=== PATIENT | female | born 2000 | race Caucasian/White ===

== ENCOUNTER → 2021-11-22 | Outpatient (CLI) | payer SELFPAY ==
--- NOTE | 2021-11-22 08:02 | US_ITS ---
STUDY: ULTRASOUND TRANSVAGINAL CLINICAL: Female, 21 years old. pelvic pain-MORE ON LEFT -- METRORRHAGIA, IRREGULAR MENSTRATION TECHNIQUE: Transvaginal COMPARISON: None. FINDINGS: Normal uterine size measuring 7.6 x 5.6 x 3.9 cm in dimension. There are no myometrial masses. Normal endometrial thickness measuring mm. There are no endometrial masses, and there is no fluid in the endometrial cavity. Normal uterine cervix. Normal right ovary, measuring 4.0 x 2.8 x 2.3 cm. Simple cyst 1.5 x 1.2 x 0.7 cm. Normal left ovary, measuring 4.7 x 4.1 x 4.0 cm. cm. 3.4 x 3.2 x 3.0 cm complex cyst with multiple septations and low level internal echoes likely representing hemorrhagic cyst less likely endometrioma. Small amount of free fluid in cul-de-sac likely physiologic. Polycystic ovary disease: No. US/Transvaginal Non- IMPRESSION: Right ovary simple cyst 1.5 x 1.2 x 0.7 cm. Left ovary complex cyst 3.4 x 3.2 x 3.0 cm likely hemorrhagic cyst less likely endometrioma. Small amount of free fluid in cul-de-sac likely physiologic. Electronically Signed: James Moralez MD, RAY at 17:16 EDT ,
== END | disposition home or self-care (01) ==
LOC: OPUS 08:01
PROVIDERS: PCP Family Medicine; Referring Provider Registered Nurse; Visit Provider Registered Nurse
DX: R92.8 Other abnormal and inconclusive findings on diagnostic imaging of breast (principal); N83.202 Unspecified ovarian cyst, left side; N92.1 Excessive and frequent menstruation with irregular cycle; N83.291 Other ovarian cyst, right side; N92.6 Irregular menstruation, unspecified
CPT/HCPCS: 76830; 93976

== ENCOUNTER 2022-01-03 10:51 | Outpatient (CLI) | payer SELFPAY ==
--- NOTE | 2022-01-03 10:55 | US_ITS ---
EXAM: US PELVIS TRANSABDOMINAL, COMPLETE CLINICAL INDICATION: follow up for complex left ovarian cyst TECHNIQUE: Transabdominal pelvic ultrasound was performed with grayscale and color Doppler imaging. This report was created using [email or web address] report [employer] technology. COMPARISON: None. FINDINGS: UTERUS/CERVIX: Normal. Anteverted. There is no uterine mass. The uterus measures 8.8 x 5.1 x 3.7 cm. The endometrial stripe measures 0.7 cm in thickness. RIGHT OVARY: Normal. Blood flow is present in the right ovary. The right ovary measures 4.1 x 2.7 x 3.1 cm. LEFT OVARY: The previously noted hemorrhagic left ovarian cyst is no longer present. Blood flow is present in the left ovary. The left ovary measures 3.5 x 2.3 x 1.7 cm. FREE FLUID: No adnexal mass or free pelvic fluid. BLADDER: Unremarkable as visualized. Wall is normal thickness for degree of distention. US/Transvaginal Non- IMPRESSION: Resolution of the left ovarian hemorrhagic cyst. No pelvic abnormality. Electronically Signed: Flyod Hillman MD at 13:22 EST ,
== END 2022-01-03 23:59 | disposition home or self-care (01) ==
LOC: OPUS 10:54
PROVIDERS: PCP Family Medicine; Referring Provider Registered Nurse; Visit Provider Registered Nurse
DX: N83.299 Other ovarian cyst, unspecified side (principal)
CPT/HCPCS: 76830

== ENCOUNTER → 2023-02-19 | Outpatient (CLI) | payer SELFPAY ==
--- OUTSIDE RECORDS SUMMARY | 2023-02-19 17:53 | XMS RPT_ITS | CCD ---
Author Name Unknown Address [address] [place] [address] Organization [facility] Care Team Providers Care Boiler Operator Name Role Phone Unavailable Primary Care Provider ELIZABETH Jones Referring Unavailable Medications Current Medications Medication Drug Class(es) Dates Sig (Normalized) Sig (Original) sulfamethoxazole 800 mg / trimethoprim 160 mg oral tablet (1 source) Dihydrofolate Reductase Inhibitor Antibacterial, Sulfonamide Antimicrobial Start: 02-24-2022 End: 03-01-2022 take 1 tablet by mouth twice daily sulfamethoxazol e-trimethoprim (BACTRIM DS) 800-160 mg per tablet Indications: Skin infection Take 1 tablet by mouth twice daily for 5 days. 10 tablet 0 02/24/2022 03/01/2022 Active Problems Problem Classification Problem Date Documented Da te Episodic/Chronic Other bone disease and musculoskeletal deformities (1 source) History of amputation of finger of right hand; Translations: [Acquired absence of right finger(s)] Episodic Other connective tissue disease (2 sources) Pain in finger of right hand; Translations: [Pain in right finger(s)] Episodic Other connective tissue disease (1 source) Pain in right finger(s); Translations: [Pain of finger of right hand] Onset: 02-24-2022 Episodic Other skin disorders (1 source) Disorder of right upper extremity; Translations: [Localized swelling, mass and lump, right upper limb] Episodic Skin and subcutaneous tissue infections (1 source) Infection of skin; Translations: [Local infection of the skin and subcutaneous tissue, unspecified] Episodic Results Test Name Value Interpretation Reference Range Facil ity Vital Signs Date Time Vital Sign Value Performing Clinician Faci lity 02-24-2022 11:47-0500 Body temperature 97.2 [degF] Elizabeth Mathis APRN.SHERIFFS DETECTIVE Work Phone: 02-24-2022 11:47-0500 Body weight 56.43 kg Elizabeth Mathis APRN.[employer] DETECTIVE Work Phone: 02-24-2022 11:47-0500 Diastolic blood pressure 68 mm[Hg] Elizabeth Mathis APRN.[employer] DETECTIVE Work Phone: 02-24-2022 11:47-0500 Heart rate 82 /min Elizabeth Mathis APRN.[employer] DETECTIVE Work Phone: 02-24-2022 11:47-0500 Respiratory rate 21 /min Elizabeth Mathis APRN.[employer]ER[employer] DETECTIVE Work Phone: 02-24-2022 11:47-0500 SaO2% (BldA) [Mass fraction] 98 % Elizabeth Mathis APRN.SHER[employer] DETECTIVE Work Phone: 02-24-2022 11:47-0500 Systolic blood pressure 98 mm[Hg] Elizabeth Mathis APRN.[employer] DETECTIVE Work Phone: Encounters Encounter Date Encounter Type Care Provider Facility Start: 03-06-2022 Telephone encounter Janna schneider PA-C Work Phone: Orthopaedics Plan of Treatment Date Care Activity Detail Author Start: 02-12-2022 DEPRESSION ASSESSMENT DEPRESSION ASSESSMENT Start: 10-13-2021 Influenza vaccination INFLUENZA (#1) Start: 2020 Urine microalbumin profile DTAP,TDAP,TD (1 - Tdap) Start: 07-04-2019 CHLAMYDIA SCREENING (18-24) CHLAMYDIA SCREENING (18-24) Start: 07-04-2019 GC (GONORRHEA) SCREENING (18-24) GC (GONORRHEA) SCREENING (18-24) Start: 07-04-2019 HEPATITIS C SCREENING HEPATITIS C SCREENING Start: 07-04-2019 HIV SCREENING HIV SCREENING Start: 07-04-2015 PEDS TO ADULT TRANSITION ANNUAL ASSESSMENT PEDS TO ADULT TRANSITION ANNUAL ASSESSMENT Start: 2013 PEDS TO ADULT TRANSITION INITIAL DISCUSSION PEDS TO ADULT TRANSITION INITIAL DISCUSSION Start: 05-22-2013 HPV VACCINE (1 - 2-dose series) HPV VACCINE (1 - 2-dose series) Start: 07-04-2011 MENINGOCOCCAL B: Consider based on risk (1 of 2 - Risk Bexsero 2-dose series) MENINGOCOCCAL B: Consider based on risk (1 of 2 - Risk Bexsero 2-dose series) Start: 07-04-2007 PNEUMOCOCCAL (1 - PCV) PNEUMOCOCCAL (1 - PCV) [facility] ic Start: 01-03-2002 COVID-19 VACCINE (#1) COVID-19 VACCINE (#1) Start: 2001 HEPATITIS B (1 of 3 - 3-dose series) HEPATITIS B (1 of 3 - 3-dose series) End: 04-05-2023 Mri upper extremity oth than jt w/o contr matrl MRI HAND WO IVCON RT Radiology STAT Localized swelling, mass, or lump of right upper extremity 1 Occurrences starting 03/06/2022 until 04/05/2023 [facility] Work Phone: Social History Date Type Detail Facility Start: 02-24-2022 Tobacco smoking stat [facility] Ex-smoker History of tobacco use Current smoker [facility] History of tobacco use Pipe Smoker [facility] History of tobacco use Passive smoker [facility] Start: 02-24-2022 Tobacco use and exposure Smoke less tobacco non-user Start: 2001 Sex Assigned At Not on file [facility] Start: 03-02-2022 Tobacco smoking stat [facility] Smokes tobacco daily Start: 03-02-2022 Tobacco use and exposure User of smo keless tobacco Start: 03-02-2022 Tobacco [facility] 03-06-2022 Telephone Encounter - Janna Tran PA-C - 03/06/2022 8:21 AM EST Note Date & Type Note Facility 03-06-2022 Miscellaneous Notes Formattin g of this note might be different from the original. Pt states she has had an increase in swelling over the past few days. She states her finger will change color and will turn yellow and then galo. She does not have any drainage or redness. She stopped antibiotics last week. It has not gotten worse in the last few days but it still is bothering her. We will obtain a MRI to r/o underlying infection. I will contact her after the MRI. She will contact the office sooner with any worsening symptoms. Janna Tran PA-C documented in this encounter Instructions 03-02-2022 Patient Instructions Note Date & Type Note Facility 03-02-2022 Instructions Janna Tran PA-C - 03/02/2022 2:29 PM EST Images from the original note were not included. HAND AND UPPER EXTREMITY SURGERY Janna Tran PA-C, MPAS Iain Croft MD, PhD ROSEMARY Renee RN Office: [phone] If you experience worsening symptoms including increased swelling, numbness, or redness, please go to the ED. Set up Mychart documented in this encounter History of Present illness Narrative 03-02-2022 Janna Tran PA-C - 03/02/2022 2:21 PM EST Note Date & Type Note Facility 03-02-2022 History of Presen t illness Narrative March 02, 2022 CHIEF COMPLAINT: Right index finger pain HPI: Ceci Gaspar is a 21 year old RHD female who presents to clinic with right index finger pain. She amputated the distal end of her finger when she was 3 years old on a crab meat processor. About six weeks ago she started having pain and more swelling at the distal end of her index finger. She was seen in the express care on 02/24/22 and was started on Batrim. This improved her symptoms. The swelling hsa improved. She has occasional sensitivity but she denies redness or drainage. She finished the antibiotics yesterday. Referred by: Self Occupation: Clean houses ASSESSMENT: 21 year old female with history of amputation of her distal right index finger 18 years ago with recent possible soft tissue infection Z89.021 History of amputation of finger of right hand (primary encounter diagnosis) M79.644 Pain of finger of right hand PLAN: Her symptoms have improved since taking Bactrim and there is no sign of infection today. She will use a light compression digi sleeve to help with the mild residual edema and continue to ice and elevate If she notices any worsening symptoms including redness, increased pain, warmth or drainage she will contact the office. She was agreeable with this plan. OBJECTIVE: There were no vitals filed for this visit. There is no height or weight on file to calculate BMI. General: NAD Eyes: Pupils not pinpointed, not overly dilated, anicteric Neck: Full range of motion Cardiovascular: Palpable pulse and brisk capillary refill (<2 sec) to all fingers Lymphatic: Inspection of the arm/hand reveals no lymphedema Respiratory: Respirations even and unlabored, no audible wheezing Integumentary: Inspection of skin reveals no breaks or obvious lesions except for those noted below. Neuro: Intact sensation to light touch over the median, ulnar, and radial nerve distributions. Psychiatric: No obvious anxiety, well kempt, normal affect. Appropriate response to pain. Musculoskeletal: RUE: Able to flex and extend all fingers at the DIP and PIP. Able to retropulse the thumb, abduct all fingers against resistance. Partial amputation of the distal phalanx of the index finger with absent nail, mild edema of distal end of the finger, no erythema, no fluctuance or drainage, no warmth, full range of motion of fingers IMAGING: Radiographs of the right index finger were obtained on 02/24/22 which were personally reviewed by me and demonstrate partial amputation deformity of the distal phalanx of the index finger, no acute osseous abnormality Supporting Subjective Information Below: Past Medical History: No past medical history on file. Past Surgical History: No past surgical history on file. Family History: No family history on file. Medications: No current outpatient medications on file. No current facility-administered medications for this visit. Allergies: ALLERGIES No Known Allergies ROS: General (negative for fatigue) HEENT (negative for headache, earache, recent vision changes, sinus pain, sore throat) Respiratory (no recent shortness of breath, hemoptysis) CV (negative for chest tightness, palpitations) GI (negative for change in bowel habits) Hematologic (no spontaneous bleeding, bruising) Endocrine (no heat or cold intolerance) Referring Physician: Elizabeth Chamorro-[phone] Janna Tran PA-C documented in this encounter Progress note 02-24-2022 Note Date & Type Note Facility 02-24-2022 Note HNO ID: [id number] Author: RT Flaco(R) Service: Radiology Author Type: Technologist Type: Progress Notes Filed: 02/24/2022 12:22 PM Note Text: Radiology Service Progress Note PATIENT NAME: Ceci Gaspar DATE OF SERVICE: February 24, 2022 TIME: 12:11 PM PATIENT IDENTITY VERIFICATION COMPLETED USING TWO (2) IDENTIFIERS: Name and Date of confirmed by patient verbally. FALL SCREENING: Has the patient had 2 falls in the last year or 1 fall with injury or currently using an Ambulatory Assistive Device (Walker, Cane, Wheelchair, Crutches, etc.)? No PATIENT GENDER DATA: Female. status: : No status: NO. PATIENT RELEVANT IMPLANT DATA REVIEWED: Yes RADIOLOGY DEPARTMENT: General X-ray: Exam(s) Completed: Upper Extremity X-Ray(s): Fingers/Thumb, right index PERIPHERAL IV DATA: Not applicable SIGNED BY: RT Flaco(R) February 24, 2022 12:11 PM [facility] Progress note 02-24-2022 Note Date & Type Note Facility 02-24-2022 Note HNO ID: [id number] Author: Elizabeth Mathis APRN.SHERIFFS DETECTIVE Service: ? Author Type: Nurse Practitioner Type: Progress Notes Filed: 02/24/2022 1:47 PM Note Text: Subjective Patient came in with complaints of right index finger pressure and discomfort. Patient says is not necessarily a pain it just feels different to her. Patient says she has noticed some slight swelling and some discoloration. Patient says this been going on for a month and a half. Patient denies any other symptoms at this time. Patient does have history of traumatic injury which left her missing the tip of her finger. This happened about 18 years ago. The history is provided by the patient. No language path was used. Review of Systems Constitutional: Negative. Skin: Negative. Objective Physical Exam Constitutional: Appearance: Normal appearance. Pulmonary: Effort: Pulmonary effort is normal. Musculoskeletal: Hands: Comments: Black area is the area that was lost in the trauma. Red area has some slight erythema in that area. The blue area is where bruised area is located. Neurological: Mental Status: She is alert. No past medical history on file. No past surgical history on file. ALLERGIES Patient has no allergy information on record. MEDICATIONS No prescriptions on file. No family history on file. Social History Tobacco Use Smoking status: Former Types: Pipe Passive exposure: Current Smokeless tobacco: Never ASSESSMENT/PLAN: 1. Pain of finger of right hand - ICD9: 729.5, ICD10: M79.644 - XR DIGIT GENERAL 3V FRONTAL/LAT/OBL RIGHT * * * * Physician Interpretation * * * * EXAMINATION: XR DIGIT 3V FRONTAL/LAT/OBL RT CLINICAL HISTORY: Right index finger pain Technique: XR DIGIT 3V FRONTAL/LAT/OBL RT -- RIGHT with 3 views on 3 images Comparison: None RESULT: There has been remote amputation of the distal phalanx of the right second digit. No acute fracture or dislocation. No destructive osseous lesion. Joint spaces are maintained. IMPRESSION IMPRESSION: No acute osseous abnormality. Puncher And Fastener: DORA Transcribe Date/Time: Feb 24 2022 12:22P Dictated by : SAPNA BILLINGSLEY MD Orthopedic consult was placed patient will make her own orthopedic appointment. Patient was placed on Bactrim twice a day for 5 days. Patient was instructed to go to the hospital symptoms seem like they are getting worse not better. Patient was okay with this care plan. Elizabeth Mathis APRN.[facility] History of Present illness Narrative 02-24-2022 Elizabeth Mathis APRN.[facility] - 02/24/2022 11:56 AM EST Note Date & Type Note Facility 02-24-2022 History of Presen t illness Narrative Images from the original note were not included. Subjective Patient came in with complaints of right index finger pressure and discomfort. Patient says is not necessarily a pain it just feels different to her. Patient says she has noticed some slight swelling and some discoloration. Patient says this been going on for a month and a half. Patient denies any other symptoms at this time. Patient does have history of traumatic injury which left her missing the tip of her finger. This happened about 18 years ago. The history is provided by the patient. No language path was used. Review of Systems Constitutional: Negative. Skin: Negative. Objective Physical Exam Constitutional: Appearance: Normal appearance. Pulmonary: Effort: Pulmonary effort is normal. Musculoskeletal: Hands: Comments: Black area is the area that was lost in the trauma. Red area has some slight erythema in that area. The blue area is where bruised area is located. Neurological: Mental Status: She is alert. No past medical history on file. No past surgical history on file. ALLERGIES Patient has no allergy information on record. MEDICATIONS No prescriptions on file. No family history on file. Social History Tobacco Use Smoking status: Former Types: Pipe Passive exposure: Current Smokeless tobacco: Never ASSESSMENT/PLAN: 1. Pain of finger of right hand - ICD9: 729.5, ICD10: M79.644 - XR DIGIT GENERAL 3V FRONTAL/LAT/OBL RIGHT * * * * Physician Interpretation * * * * EXAMINATION: XR DIGIT 3V FRONTAL/LAT/OBL RT CLINICAL HISTORY: Right index finger pain Technique: XR DIGIT 3V FRONTAL/LAT/OBL RT -- RIGHT with 3 views on 3 images Comparison: None RESULT: There has been remote amputation of the distal phalanx of the right second digit. No acute fracture or dislocation. No destructive osseous lesion. Joint spaces are maintained. IMPRESSION IMPRESSION: No acute osseous abnormality. Puncher And Fastener: DORA Transcribe Date/Time: Feb 24 2022 12:22P Dictated by : SAPNA BILLINGSLEY MD Orthopedic consult was placed patient will make her own orthopedic appointment. Patient was placed on Bactrim twice a day for 5 days. Patient was instructed to go to the hospital symptoms seem like they are getting worse not better. Patient was okay with this care plan. Elizabeth Mathis APRN.CNP documented in this encounter Evaluation note Note Date & Type Note Facility documented in this encounter Evaluation note Note Date & Type Note Facility documented in this encounter Evaluation note Note Date & Type Note Facility documented in this encounter Reason for Referral Specialty Diagnoses / Procedures Referred By Antonio arevalo Referred To Contact Orthopedics Diagnoses Pain of finger of right hand Procedures CONSULT TO ORTHOPAEDICS OFFICE/OUTPATIENT [facility] 60-74 MINUTES Elizabeth Mathis, DELROY.[employer]ERIFFS DETECTIVE [address] [place] [address] Referral ID Status Reason Start Date Expiration Date Visits Requested Visits Authorized [id number] Pending Review PCP Requested Referral 02/24/2022 02/24/2023 1 1 Specialty Diagnoses / Procedures Referred By Contac t Referred To Contact XR IMAGING Diagnoses Pain of finger of right hand Procedures XR DIGIT GENERAL 3V FRONTAL/LAT/OBL RIGHT RADEX FINGR MINIMUM 2 VIEWS Elizabeth Mathis APRN.SHERIFF[employer] DETECTIVE [address] [place] [address] Xr Imaging Referral ID Status Reason Start Date Expiration Date V isits Requested Visits Authorized [id number] Closed Auto-Generate d Referral 02/24/2022 03/26/2023 1 1 Specialty Diagnoses / Procedures Referred By Contac t Referred To Contact MR IMAGING Diagnoses Localized swelling, mass, or lump of right upper extremity Procedures MRI HAND WO IVCON RT MRI UPPER EXTREMITY OTH THAN JT W/O CONTR Janna Mcgowan, TR [address] [place] [address] Mr Imaging Referral ID Status Reason Start Date Expiration Date Visits Requested Visits Authorized [id number] Pending Review Auto-Generat ed Referral 03/06/2022 04/05/2023 1 1 Summary Purpose Family History No Family History Records FoundNo Family History Records Found Advance Directives No Advanced Directives Records FoundNo Advanced Directives Records Found Additional Source Comments Source Comments (unrecognize d section and content) In the event this informatio n is protected by the Federal Confidentiality of Alcohol and Drug Abuse Patient Records regulations: The Federal rules restrict any use of the information to criminally investigate or prosecute any alcohol or drug abuse patient.[facility] ClinicIn the event this information is protected by the Federal Confidentiality of Alcohol and Drug Abuse Patient Records regulations: The Federal rules restrict any use of the information to criminally investigate or prosecute any alcohol or drug abuse patient.In the event this information is protected by the Federal Confidentiality of Alcohol and Drug Abuse Patient Records regulations: The Federal rules restrict any use of the information to criminally investigate or prosecute any alcohol or drug abuse patient. Reason for Visit (unrecogniz ed section and content) Reason Comments New Pain Swelling Specialty Diagnoses / Procedures Referred By Antonio arevalo Referred To Contact Orthopedics Diagnoses Pain of finger of right hand Procedures CONSULT TO ORTHOPAEDICS OFFICE/OUTPATIENT NEW HIGH MDM 60-74 MINUTES Elizabeth Mathis APRN.SHERIFFS DETECTIVE [address] [place] [address] Referral ID Status Reason Start Date Expiration Date Visits Requested Visits Authorized [id number] Pending Review PCP Requested Referral 02/24/2022 02/24/2023 1 1 Reason Comments Patient Update INFORMATION SOURCE (unrecogn ized section and content) DATE CREATED AUTHOR AUTHOR'S CELI LOVE 01/31/2023 [facility] FOR RECORDS PERTAINING TO PATIENTS WHO ARE OR HAVE BEEN ENROLLED IN A CHEMICAL DEPENDENCY/SUBSTANCEABUSE PROGRAM, SOME INFORMATION MAY BE OMITTED. This clinical summary was aggregated from multiple sources. Caution should be exercised in using it in the provision of clinical care. This summary normalizes information from multiple sources, and as a consequence, information in this document may materially change the coding, format and clinical context of patient data. In addition, data may be omitted in some cases. CLINICAL DECISIONS SHOULD BE BASED ON THE PRIMARY CLINICAL RECORDS. [facility]. provides no warranty or guarantee of the accuracy or completeness of information in this document.
--- NOTE | 2023-02-19 17:54 | CT_ITS ---
STUDY: CT FACIAL BONES WITHOUT CONTRAST REASON FOR EXAM: Female, 22 years old. FACIAL TRAUMA, DEVIATED SEPTUM RADIATION DOSAGE (If Supplied By Facility): CTDIvol = ( 29.38 ) mGy, DLP = ( 613.57 ) mGycm TECHNIQUE: The patient was scanned in a multi detector CT scanner. Sagittal and coronal images were reconstructed. Individualized dose optimization techniques were used for this CT. COMPARISON: None. FINDINGS: Normal soft tissue structures. Normal orbital steward and orbital contents. Normal nasal bones and anterior nasal spine. Normal facial bones. There is no demonstrated fracture. Nasal septal deviation towards the right side of the midline. Mild degree of mucosal thickening along the posterior aspect of the right ethmoid sinuses. CT/Sinus/Facial Bone IMPRESSION: Mild degree of mucosal thickening along the proximal aspect of the right ethmoid sinus. Mild right nasal septal deviation. Electronically Signed: Harpreet Ovalle MD at 12:43 EST ,
== END | disposition home or self-care (01) ==
LOC: CT 17:50
PROVIDERS: PCP Family Medicine; Referring Provider Otolaryngology; Visit Provider Otolaryngology
DX: S02.2XXA Fracture of nasal bones, initial encounter for closed fracture (principal); J34.2 Deviated nasal septum
CPT/HCPCS: 70486

== ENCOUNTER 2024-01-16 11:11 | Emergency (ER) | payer OTHER, SELFPAY ==
[2024-01-16 11:12] VITALS: BP 134/85; PULSE 115; RESP 18; TEMP 35.6; O2SAT 100
--- NOTE | 2024-01-16 11:48 | CT_ITS ---
STUDY: CT ABDOMEN AND PELVIS WITH CONTRAST REASON FOR EXAM: Female, 23 years old. left upper quadrant abdominal pain RADIATION DOSAGE (If Supplied By Facility): CTDIvol = ( 17.06 ) mGy, DLP = ( 370.40 ) mGycm TECHNIQUE: Transaxial images were obtained from the dome of the diaphragm to the symphysis pubis without oral contrast. IV 75mL Isovue-370 was administered. Sagittal and coronal images were reconstructed. Individualized dose optimization techniques were used for this CT. COMPARISON: None. FINDINGS: The visualized lung bases are unremarkable. The visualized portions of the heart are within normal limits. Liver is unremarkable aside from a hypoechoic likely hemangioma along the falciform ligament. Normal gallbladder and extrahepatic biliary system. Normal spleen. Normal pancreas. Normal bilateral adrenal glands. Normal right kidney. Normal left kidney. Normal visualized stomach. Normal small intestine. Normal colon. The appendix is visualized and appears normal. Appendix seen on coronal recon images 38 through 43. Normal abdominal aorta. Normal inferior vena cava. Normal retroperitoneum. Normal urinary bladder. Normal appearing uterus and physiologic ovarian cysts. Normal abdominal wall. Normal osseous structures. CT/Abdomen/Pelvis W IV Cont ONLY IMPRESSION: No suspicious solid organ abnormality No free intraperitoneal fluid, air, or suspicious adenopathy, normal appendix visualized Electronically Signed: Moncho Lovett MD at 14:04 EST ,
--- NOTE | 2024-01-16 11:48 | EKG12_ITS ---
Test Reason : Blood Pressure : */* mmHG Vent. Rate : 64 BPM Atrial Rate : 64 BPM P-R Int : 114 ms QRS Dur : 90 ms QT Int : 428 ms P-R-T Axes : 10 83 54 degrees QTcB Int : 441 ms Normal sinus rhythm with sinus arrhythmia Normal ECG Confirmed by Hudson Bradford ([id number]), assistant editor DARA GONZALES ([id number]) on 01/17/2024 1:06:07 PM Referred By: Confirmed By: Hudson Bradford
--- NOTE | 2024-01-16 11:58 | EDS_ITS ---
HPI History of Present Illness Chief Complaint: Abd Pain Narrative Narrative: Chief complaint and HPI: Left upper quadrant abdominal pain. 23-year-old female with no significant past medical history presents for evaluation of left upper quadrant abdominal pain. Onset of symptoms have been intermittent for 2 months. Associated symptoms are nausea, vomiting, decreased p.o. intake. Patient states her pain is worse with eating and deep inspiration. She denies any fever, chills, URI symptoms, cough, shortness of breath, chest pain, dysuria, diarrhea, constipation. Her last menstrual cycle was a week ago and are regular. She is sexually active. Not on control. She saw her PCP who scheduled an outpatient CT abdomen and pelvis. Patient states her pain has not improved which is why she presents today. She states that she has lost weight due to her decreased appetite. Review of systems: See HPI Medications: As listed on the chart Allergies: As listed on the chart PFSH: Per chart Vital signs: As listed on the chart. Reviewed. Physical exam: Gen: A&O x3, NAD Head: Normocephalic, atraumatic Eyes: No sclera icterus, conjunctiva clear ENT: Moist mucous membranes Neck: Trachea midline, No JVD CV: RRR, no murmurs, no peripheral edema Resp: Lungs CTA BL, no w/r/c GI: Abd soft, non-distended, non-tender, no r/r/g Musc: Full ROM, no deformity Skin: Warm, dry, without rash Neuro: Alert, oriented, grossly intact, sensation intact Psych: Cooperative, appropriate mood and affect PFS PFS Home Medications ?Medication ?Instructions ?Recorded ?Last Taken ?Type pantoprazole 40 mg tablet,delayed 40 mg PO DAILY 30 days #30 tabs 01/16/24 Unknown Rx release (Protonix) Allergy/AdvReac Type Severity Reaction Status Date / Time No Known Allergies Allergy Verified 01/16/24 11:12 Social History (Updated 11/10/21 @ 06:21 by Astrid Maguire) Smoking Status: Never smoker alcohol intake: never EXAM Physical Exam Const Vital Signs: 01/16/24 11:12 01/16/24 13:12 Temperature 96.1 F L Temperature Source Temporal Pulse Rate 115 H 78 Respiratory Rate 18 16 Blood Pressure 134/85 H 124/78 H Blood Pressure Mean 101 93 Pulse Ox 100 98 Oxygen Delivery Method Room Air MDM MDM MDM Narrative Medical decision making narrative: 23-year-old female presents for evaluation of left upper quadrant abdominal pain. Symptoms have been ongoing for 2 months. Differential diagnosis includes but is not limited to gastritis, GERD, PUD, pancreatitis. Less likely cholelithiasis, cholecystitis, UTI, , pneumonia, PE, ACS. Patient is nontender on physical exam. Pepcid ordered for pain. Laboratory workup ordered including CT abdomen pelvis. EKG and chest x-ray reviewed, see below. CBC without leukocytosis or anemia. D-dimer unremarkable. CMP without TAM or transaminitis. Patient has elevation in lipase at 100 however this is not 3 times the upper limit of normal to diagnose pancreatitis. Patient is not tender to palpation in the epigastrium. Troponin unremarkable. UA negative for UTI. Urine negative. CT abdomen pelvis without any acute intra-abdominal pathology. On reevaluation, patient states her pain did improve with Pepcid. At this point in time, no clear etiology for patient's pain although I suspect it could be secondary to gastritis, GERD, PUD. Patient would benefit from GI follow-up outpatient with possible endoscopy. Patient was updated of all of her results and confirmed understanding. Patient will be placed on Protonix daily. Follow-up with PCP. Prior to patient being discharged I did call the PCP office. I spoke with the nurse practitioner that did examine the patient. They were updated of all the results and findings including the CT abdomen pelvis that I performed. They agree with follow-up with GI and in their office. Patient stable to discharge home. EKG: Interpreted by me/EM physician: EKG shows normal sinus rhythm without any acute ischemic changes. Heart rate 64. Diagnostic: Interpreted by me/EM physician: Chest x-ray without pneumonia, effusion, pneumothorax, cardiomegaly Impression: 1. Left upper quadrant abdominal pain 2. Suspect gastritis versus GERD versus PUD Lab Data Labs: Laboratory Results - last 24 hr 01/16/24 01/16/24 12:16 12:28 WBC 6.1 RBC 4.84 Hgb 14.0 Hct 40.6 MCV 83.9 MCH 28.9 MCHC 34.5 RDW Std Deviation 37.4 RDW Coeff of Bailee 12.4 Plt Count 251 MPV 9.8 Immature Gran % (Auto) 0.200 Neut % (Auto) 61.6 Lymph % (Auto) 28.1 [place] % (Auto) 7.9 Eos % (Auto) 1.5 Baso % (Auto) 0.7 Absolute Neuts (auto) 3.8 Absolute Lymphs (auto) 1.71 Nucleated RBC % 0 D-Dimer Quant (PE/DVT) 0.27 Sodium 139 Potassium 3.5 Chloride 107 Carbon Dioxide 27.0 Anion Gap 5 BUN 7 Creatinine 0.79 Estim Creat Clear Calc 93.58 Est GFR (MDRD) Af Amer 116 Est GFR (MDRD) Non-Af 96 BUN/Creatinine Ratio 8.8 L Glucose 98 Calcium 9.3 Total Bilirubin 0.70 AST 5 L ALT 14 Alkaline Phosphatase 66 Troponin I High Sens < 3 L Total Protein 7.6 Albumin 4.6 Globulin 3.0 Albumin/Globulin Ratio 1.5 Lipase 100 H Urine Color Straw Urine Clarity Clear Urine pH 7.0 Ur Specific [place] 1.010 Urine Protein Negative Urine Glucose (UA) Normal Urine Ketones Negative Urine Occult Blood Negative Urine Nitrite Negative Urine Bilirubin Negative Urine Urobilinogen Normal Ur Leukocyte Esterase Negative Urine RBC 0 SEEN Urine WBC 0 SEEN Ur Squamous Epith Cells 0-5 SEEN Urine Bacteria 0 SEEN Urine Mucus 0 SEEN Urine Test Negative Radiography Diagnostic Testing: Clinical Impression(s) from Imaging Studies Abdomen/Pelvis CT 01/16/24 11:48 IMPRESSION: No suspicious solid organ abnormality No free intraperitoneal fluid, air, or suspicious adenopathy, normal appendix visualized Electronically Signed: Moncho Lovett MD at 14:04 EST Reading Location ID and State: [facility] / [place] , Service support , Chest X-Ray 01/16/24 13:28 IMPRESSION: Normal x-ray examination of the chest. Electronically Signed: Moncho Lovett MD at 13:51 EST , Discharge Plan Triage Chief Complaint: Abd Pain ED Provider: Chuck Hickey Dx/Rx/DC Orders Clinical Impression: Abdominal pain Instructions: ED Abdominal Pain Unkn Cause Fem Prescriptions: New pantoprazole [Protonix] 40 mg tablet,delayed release (DR/EC) 40 mg PO DAILY 30 Days Qty: 30 0RF Primary Care Provider: Manfred Cid Referrals: Manfred Cid DO [Primary Care Provider] - 3-5 Days FriendCristopher DO [Med Staff - Active Staff] - As soon as possible Activity Restrictions/Additional Instructions: Follow-up with GI and PCP. Return back to the ED if symptoms change or worsen. Take the Protonix prescribed. Print Language: Japanese Disposition Disposition: Home, Self Care Discharge Date/Time: 01/16/24 15:04
[2024-01-16 12:32] LABS: Absolute Lymphocyte Count 1.71 X10^3/uL (0.83-4.51); Absolute Neutrophil Count 3.8 X10^3/uL (2.0-7.7); Basophil# 0.04 X10^3/uL; Basophil% 0.7 % (0-1); Eosinophil# 0.09 X10^3/uL; Eosinophils% 1.5 % (0-5); Hematocrit 40.6 % (37-47); Lymphocyte # 1.71 X10^3/ul (0.83-4.51); Lymphocyte % 28.1 % (19-41); Mean Corp Hgb Conc 34.5 g/dL (32-36); Mean Corpuscular Hgb 28.9 pg (27.0-32.0); Mean Corpuscular Volume 83.9 fL (81-99); Mean Platelet Vol. 9.8 fl (6.2-12.0); Monocyte# 0.48 X10^3/uL; Monocyte% 7.9 % (0-10); NRBC Flagged by Analyzer 0 % (0-5); Neutrophil # 3.76 X10^3/uL (2.7-7.7); Neutrophil % 61.6 % (47-70); Platelet Count 251 K/mm3 (150-450); RBC Distribution Width CV 12.4 % (11.6-14.6); RBC Distribution Width SD 37.4 fl (35.1-43.9); Red Blood Count 4.84 M/mm3 (4.2-5.4); White Blood Count 6.1 K/mm3 (4.4-11.0)
[2024-01-16 12:34] LABS: Bacteria 0 SEEN /hpf (None Seen); Mucous, Urine 0 SEEN /hpf (<or=2+); Red Blood Cells-Urine 0 SEEN /hpf (0-5); White Blood Cells 0 SEEN /hpf (0-5)
[2024-01-16 12:43] LABS: D-Dimer Quantitative (DVT/PE) 0.27 FEU/ug/m (0.27-0.49)
[2024-01-16] MEDS: Famotidine 200 MG/20 ML MDV 20 MG in 0.9% Normal Saline (Pres. free 8 ML 300 MG IV (12:47)
[2024-01-16 12:48] LABS: ALB/GLOB Ratio 1.5 RATIO (0.9-2.4); AST(SGOT) 5 U/L (15-37); Alanine Aminotransfer ALT/SGPT 14 U/L (13-56); Albumin, Serum 4.6 g/dL (3.2-5.0); Alkaline Phosphatase 66 U/L (45-117); Anion Gap 5 (5-15); BUN 7 mg/dL (7-18); BUN/Creat Ratio 8.8 RATIO (10-20); Calcium,Total 9.3 mg/dL (8.5-10.1); Chloride 107 mmol/L (98-107); Creatinine, Serum 0.79 mg/dL (0.55-1.02); EST Glomerular Filtration Rate 96 mL/min (>60); Est Glom Filt Rate - Afr Amer 116 mL/min (>60); Estimated Creatinine Clearance 93.58 ml/min; Glucose 98 mg/dL (74-106); Lipase 100 U/L (13-75); Potassium 3.5 mmol/L (3.5-5.1); Protein, Total 7.6 g/dL (6.4-8.2); Sodium Level 139 mmol/L (136-145); Troponin-I HS < 3 pg/mL (3.0-54.0)
[2024-01-16 12:51] LABS: Color, Urine Straw (Yellow); Glucose, Dipstick Normal (Normal); Ketone-Dipstick Negative (Negative); Leukocyte Esterase-Dipstick Negative /ul (Negative); Nitrite-Dipstick Negative (Negative); Occult Blood-Urine Negative /ul (Negative); Protein-Dipstick Negative (Negative); Urine Bilirubin Dipstick Negative (Negative); Urine Clarity Clear (Clear); Urine Urobilinogen Normal (Normal)
[2024-01-16 13:03] LABS: Internal QC Validated? YES +Cl - CLEAR BKGD; Pregnancy, Urine Negative Negative
[2024-01-16 13:12] VITALS: BP 124/78; PULSE 78; RESP 16; O2SAT 98
[2024-01-16 13:12] LABS: Squamous Epithelial Cells - UA 0-5 SEEN /hpf (5-10)
--- NOTE | 2024-01-16 13:28 | RAD_ITS ---
STUDY: X-RAY CHEST REASON FOR EXAM: Female, 23 years old. Pain with inspiration TECHNIQUE: PA and lateral views of the chest. COMPARISON: None. FINDINGS: The lungs are clear and expanded. There is no demonstrated pleural abnormality. Normal size heart. Normal mediastinum and shin. Normal visualized pulmonary arteries. Normal visualized aortic arch and descending thoracic aorta. Normal visualized thoracic spine. Normal visualized ribs, clavicles, and shoulders. There is no demonstrated abnormality of the visualized soft tissue structures of the upper abdomen. RAD/Chest PA and Lateral IMPRESSION: Normal x-ray examination of the chest. Electronically Signed: Moncho Lovett MD at 13:51 EST ,
== END 2024-01-16 15:04 | disposition home or self-care (01) ==
PROVIDERS: Emergency Provider Surgery; PCP Family Medicine; Visit Provider Surgery
DX: R10.12 Left upper quadrant pain (principal); R11.2 Nausea with vomiting, unspecified
CPT/HCPCS: 71046; 74177; 80053; 81001; 81025; 83690; 84484; 85025; 85379; 93005; 96374; 99283; Q9967; A4216

== ENCOUNTER → 2024-02-11 | Outpatient (CLI) | payer SELFPAY ==
[2024-02-11 11:47] LABS: Erythrocyte Sedimentation Rate < 1 mm/hr (0-30)
[2024-02-11 12:37] LABS: ALB/GLOB Ratio 1.3 RATIO (0.9-2.4); AST(SGOT) 4 U/L (15-37); Alanine Aminotransfer ALT/SGPT 15 U/L (13-56); Albumin, Serum 4.2 g/dL (3.2-5.0); Alkaline Phosphatase 63 U/L (45-117); Anion Gap 2 (5-15); BUN 8 mg/dL (7-18); BUN/Creat Ratio 10.4 RATIO (10-20); Bilirubin, Direct 0.16 mg/dL (0.00-0.30); CRP < 2.90 mg/L (0.0-3.0); Chloride 107 mmol/L (98-107); Creatinine, Serum 0.77 mg/dL (0.55-1.02); EST Glomerular Filtration Rate 99 mL/min (>60); Est Glom Filt Rate - Afr Amer 120 mL/min (>60); Globulin 3.3 g/dL (2.2-4.2); Glucose 103 mg/dL (74-106); Lipase 51 U/L (13-75); Protein, Total 7.5 g/dL (6.4-8.2); Sodium Level 138 mmol/L (136-145)
[2024-02-12 15:07] LABS: IgG, Quant 910 mg/dL (586-1602); Immunoglobulin G, Subclass 1 469 mg/dL (248-810); Immunoglobulin G, Subclass 2 209 mg/dL (130-555); Immunoglobulin G, Subclass 3 38 mg/dL (15-102); Immunoglobulin G, Subclass 4 25 mg/dL (2-96)
== END | disposition home or self-care (01) ==
PROVIDERS: PCP Family Medicine; Referring Provider Student in an Organized Health Care Education/Training Program; Visit Provider Student in an Organized Health Care Education/Training Program
DX: R10.9 Unspecified abdominal pain (principal); R63.4 Abnormal weight loss
CPT/HCPCS: 36415; 80053; 82248; 82784; 82787; 83690; 85652; 86140